=== PATIENT | female | born 1985 | race Caucasian/White ===

== ENCOUNTER 2024-10-08 19:24 | Emergency (ER) | payer OTHER, SELFPAY ==
[2024-10-08 19:27] VITALS: BP 136/97; PULSE 100; RESP 16; TEMP 37.2; O2SAT 99; BMI 34.0
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
--- NOTE | 2024-10-08 19:58 | PC.NURSE ---
Nohemi ZAVALA updated patient's spouse Bandar on patient status.
[2024-10-08] MEDS: ketorolac 30 mg/mL INJ IVP (20:14)
[2024-10-08] MEDS: orphenadrine 30 mg/mL Inj 2 mL 60 MG IVP (20:14)
[2024-10-08 20:20] VITALS: PULSE 101; O2SAT 92
[2024-10-08 20:54] VITALS: BP 129/80; PULSE 95; O2SAT 98
== END 2024-10-08 20:57 | disposition home or self-care (01) ==
PROVIDERS: Emergency Provider Emergency Medicine
DX: M79.18 Myalgia, other site (principal); V89.2XXA Person injured in unspecified motor-vehicle accident, traffic, initial encounter; M79.605 Pain in left leg; M79.604 Pain in right leg
CPT/HCPCS: 70450; 72125; 73552; 73562; 73590; 73610; 96374; 96375; 99285; J1885; J2360

== ENCOUNTER 2024-10-16 15:16 | Emergency (ER) | payer MEDICAID, SELFPAY ==
[2024-10-16 15:20] VITALS: BP 149/88; PULSE 88; RESP 14; TEMP 36.7; O2SAT 99; BMI 38.7
--- NOTE | 2024-10-16 15:37 | USR_ITS ---
PROCEDURE INFORMATION: Exam: US Duplex Left Lower Extremity Veins, Limited Exam date and time: 10/16/2024 4:53 PM Age: 39 years old Clinical indication: Pain; Leg, lower; Left; Additional info: Left-sided calf pain and swelling concern for dvt TECHNIQUE: Imaging protocol: Real-time duplex ultrasound of the left extremity with 2-D hernandez scale, color Doppler flow and spectral waveform analysis including responses to compression and other maneuvers (when performed) with image documentation. Limited exam focused on the left lower extremity veins. COMPARISON: CR (LOW EXM, ) 10/08/2024 7:40 PM FINDINGS: Left deep veins: Unremarkable. The common femoral, femoral, proximal profunda femoral and popliteal veins are patent without thrombus. Normal Doppler waveforms. Normal compressibility and/or augmentation response. Superficial veins: Greater saphenous vein at the saphenofemoral junction is patent without thrombus. Soft tissues: Unremarkable. US/[place] [id number] IMPRESSION: No evidence of deep vein thrombosis.
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
== END 2024-10-16 17:05 | disposition home or self-care (01) ==
PROVIDERS: Emergency Provider Emergency Medicine
DX: S80.12XA Contusion of left lower leg, initial encounter (principal); X58.XXXA Exposure to other specified factors, initial encounter
CPT/HCPCS: 93971; 99283